=== PATIENT | male | born 1950 | race Caucasian/White ===

== ENCOUNTER → 2016-02-17 | Outpatient (CLI) | payer MEDICARE, BC ==
[~2016-02-17] MED LIST: ASPIRIN ADULT L81 M3 PO; COLCHICINE0.6 M2 PO; FABB PO; FISH OIL1 IU PO; HYDROCHLOROTHIA1 T15 PO; LISINOPRIL20 MG PO; METOPROLOL SUCC25 M1 PO; OMEPRAZOLE40 MG PO; SAW PALMETTO C1 EACH PO
[2016-02-17 12:30] VITALS: BP 133/78
== END ==
LOC: AMSURD 12:02
DX: Z01.810 Encounter for preprocedural cardiovascular examination (principal)

== ENCOUNTER → 2016-02-26 | Outpatient (CLI) | payer MEDICARE, BC | LOC: VAS 17:21 | DX: Z01.810 Encounter for preprocedural cardiovascular examination (principal); R94.31 Abnormal electrocardiogram [ECG] [EKG] ==

== ENCOUNTER → 2016-02-28 | Outpatient (CLI) | payer MEDICARE, BC | LOC: CARDREHAB 07:36 | DX: Z01.810 Encounter for preprocedural cardiovascular examination (principal); R94.31 Abnormal electrocardiogram [ECG] [EKG]; I10 Essential (primary) hypertension; E78.5 Hyperlipidemia, unspecified; E78.00 Pure hypercholesterolemia, unspecified | CPT/HCPCS: A9500 ==

== ENCOUNTER → 2016-04-24 | Outpatient (CLI) | payer MEDICARE, BC | LOC: LAB 08:15 | DX: I10 Essential (primary) hypertension (principal); R73.09 Other abnormal glucose ==

== ENCOUNTER → 2016-06-30 | Outpatient (CLI) | payer MEDICARE, BC ==
[2016-02-17 12:30] VITALS: BP 133/78
== END ==
LOC: LAB 09:19 → RAD 09:19
DX: R91.1 Solitary pulmonary nodule (principal)
CPT/HCPCS: Q9967